=== PATIENT | female | born 1995 | race African-American/Black ===

== ENCOUNTER 2017-04-16 09:24 | Emergency (ER) | payer BC ==
[~2017-04-16] VITALS: Ht 157.5 cm; Wt 63.0 kg
[2017-04-16] MEDS ORDERED: ALBUTEROL (0.083%) 2.5MG/3ML NEB ONE (10:15)
[2017-04-16] MEDS ORDERED: IPRATROPIUM/ALBUTEROL 0.5-3(2.5)MG/3ML NEB ONE (10:16)
[2017-04-16] MEDS ORDERED: IPRATROPIUM BROMIDE (0.02%) 0.5MG/2.5ML NEB ONE (10:18)
[2017-04-16] MEDS ORDERED: METHYLPREDNISOLONE SOD SUCC 125 MG/2 ML VIAL ONE (10:40)
[2017-04-16] MEDS ORDERED: MAGNESIUM 2 G PREMIX 50 ML IV ONE (10:41)
[2017-04-16] MEDS ORDERED: SODIUM CHLORIDE 0.9% 1,000 ML IV ONE (11:03)
[2017-04-16] MEDS ORDERED: IPRATROPIUM BROMIDE (0.02%) 0.5MG/2.5ML NEB HHN STA (11:03)
[2017-04-16] MEDS ORDERED: METHYLPREDNISOLONE SOD SUCC 125 MG/2 ML VIAL IV STA (11:03)
[2017-04-16] MEDS ORDERED: ALBUTEROL (0.083%) 2.5MG/3ML NEB HHN STA (11:03)
[2017-04-16] MEDS ORDERED: MAGNESIUM 2 G PREMIX 50 ML IV STA (11:03)
[2017-04-16] MEDS ORDERED: PREDNISONE 20MG TABLET PO ONE (12:00)
[2017-04-16 13:59] VITALS: BP 111/57
== END 2017-04-16 14:04 | disposition home or self-care (01) ==
LOC: ER 13:33
DX: J45.901 Unspecified asthma with (acute) exacerbation (principal); J20.9 Acute bronchitis, unspecified; R03.0 Elevated blood-pressure reading, without diagnosis of hypertension
CPT/HCPCS: 71010; 94640; 96365; 96366; 96375; 99285; J2930; J3475; J7030; J7512; J7611; Z7610; J7620

== ENCOUNTER 2019-02-04 20:01 | Emergency (ER) | payer BC ==
[~2019-02-04] VITALS: Ht 157.5 cm; Wt 66.0 kg
[2019-02-04 20:53] VITALS: BP 110/76
== END 2019-02-04 23:00 | disposition left against medical advice (07) ==
LOC: ER 20:01
DX: Z53.21 Procedure and treatment not carried out due to patient leaving prior to being seen by health care provider (principal)

== ENCOUNTER 2024-11-11 13:16 | Emergency (ER) | payer BC, MEDICAID ==
[~2024-11-11] VITALS: Ht 157.5 cm; Wt 63.5 kg
[2024-11-11 13:26] VITALS: O2SAT 98
[2024-11-11 13:32] VITALS: BP 110/57; TEMP 98.7; O2SAT 98
[2024-11-11 14:18] VITALS: PULSE 73; RESP 12
[2024-11-11] MEDS: IPRATROPIUM/ALBUTEROL 0.5-3(2.5)MG/3ML NEB HHN ONE (14:18)
[2024-11-11] MEDS ORDERED: P20 MT (17:49)
[2024-11-11] MEDS ORDERED: ALBU05 NEB (17:49)
[2024-11-11] MEDS ORDERED: ALBU18HF2 IH (17:49)
[2024-11-11] MEDS ORDERED: TAM75 MT (17:49)
[2024-11-11] MEDS: PREDNISONE 20MG TABLET PO NR (17:57)
== END 2024-11-11 18:03 | disposition home or self-care (01) ==
LOC: ER 13:16
DX: J11.1 Influenza due to unidentified influenza virus with other respiratory manifestations (principal); J45.901 Unspecified asthma with (acute) exacerbation; F12.90 Cannabis use, unspecified, uncomplicated
CPT/HCPCS: 71045; 94640; 99283; J7512; Z7610 ×3